=== PATIENT | male | born 1990 | race Caucasian/White ===

== ENCOUNTER 2020-07-04 18:33 | Inpatient (IN) | payer OTHER ==
[~2020-07-04] VITALS: Ht 190.5 cm; Wt 109.0 kg
[2020-07-04] MEDS ORDERED: SODIUM CHLORIDE 0.9% 1,000 ML IV ONE (20:00)
[2020-07-04] MEDS ORDERED: CloNIDine HCL 0.2 MG TABLET PO ONE (20:00)
[2020-07-04 20:26] LABS: COVID AG,FIA SOURCE NASOPHARYNGEAL
[2020-07-04 20:31] LABS: BASOPHILS % (AUTO) 0.3 % (0.0-2.0); EOSINOPHILS % (AUTO) 1.2 % (1.0-6.0); HEMATOCRIT 42.1 % (41-53); HEMOGLOBIN 14.8 g/dL (13.5-17.5); LYMPHOCYTES % (AUTO) 25.2 % (22.0-44.0); MEAN CORPUSCULAR HEMOGLOBIN 29.1 pg (26.0-34.0); MEAN CORPUSCULAR HGB CONC 35.3 G/dL (31.0-37.0); MEAN CORPUSCULAR VOLUME 83 fL (80-100); MONOCYTES # (AUTO) 0.4 K/uL (0.1-1.0); MONOCYTES % (AUTO) 4.8 % (2.0-9.0); NEUTROPHILS # (AUTO) 5.5 K/uL (1.8-7.7); NEUTROPHILS % (AUTO) 68.5 % (40.0-70.0); PLATELET COUNT (AUTO) 255 K/uL (150-450); RED BLOOD CELL COUNT(AUTO) 5.11 MIL/uL (4.50-5.90); RED CELL DISTRIBUTION WIDTH 12.9 % (11.5-14.5)
[2020-07-04 20:47] LABS: ANION GAP 10 mmol/L (8-16); CALCIUM, TOTAL 9.1 mg/dL (8.8-10.5); CARBON DIOXIDE 26 mmol/L (22-29); CHLORIDE 102 mmol/L (98-107); CREATININE 0.64 mg/dL (0.60-1.30); GLOMERULAR FILTR. RATE CALC > 60 mL/min (>60); GLUCOSE,RANDOM 103 mg/dL (70-110); POTASSIUM 3.8 mmol/L (3.5-5.1); SODIUM SERUM 138 mmol/L (136-145); UREA NITROGEN, BLOOD 12 mg/dL (7-18)
[2020-07-04 20:59] LABS: ALANINE AMINOTRANSFERASE 37 U/L (12-78); ALKALINE PHOSPHATASE 75 U/L (46-116); ASPARTATE AMINOTRANSFERASE 15 U/L (15-37); BILIRUBIN,TOTAL 0.5 mg/dL (0.1-1.0); TOTAL PROTEIN, SERUM 7.5 g/dL (6.4-8.2)
[2020-07-04] MEDS ORDERED: ONDANSETRON HCL 4 MG/2 ML VIAL IVP PRN (21:00)
[2020-07-04] MEDS ORDERED: CloNIDine HCL 0.1 MG TABLET PO PRN (21:00)
[2020-07-04] MEDS ORDERED: ACETAMINOPHEN 325 MG TABLET PO PRN (21:00)
[2020-07-04] MEDS ORDERED: LORazepam 2 MG TABLET PO PRN (21:30)
[2020-07-04 22:00] VITALS: BP 139/75
[2020-07-04] MEDS ORDERED: INFLUENZA VIRUS VACCINE QVS 2020-21 (6MO+)/PF 60 MCG/0.5 ML SYRINGE IM ONE (22:30)
[2020-07-04] MEDS ORDERED: PNEUMOCOCCAL VACCINE POLYVALENT 0.5 ML VIAL [PPSV23] IM ONE (22:30)
[2020-07-04 22:37] VITALS: BP 139/75
[2020-07-04 23:40] VITALS: BP 100/66
[2020-07-05] VITALS (8 sets, daily range): BP systolic 102–156; BP diastolic 43–91
[2020-07-05] MEDS ORDERED: LORazepam 2 MG TABLET PO PRN (07:00)
[2020-07-05] MEDS ORDERED: ENOXAPARIN SODIUM 40 MG/0.4 ML PF SYRINGE SQ SCH (09:00)
[2020-07-05] MEDS ORDERED: LORazepam 2 MG TABLET PO SCH (09:00)
[2020-07-06 04:45] VITALS: BP 145/94
[2020-07-06 08:53] VITALS: BP 136/75
[2020-07-06 20:43] VITALS: BP 148/77
[2020-07-06 23:30] VITALS: BP 143/92
[2020-07-07 04:55] VITALS: BP 144/90
[2020-07-07] MEDS ORDERED: LORazepam 1 MG TABLET PO PRN (07:00)
[2020-07-07 08:32] VITALS: BP 150/92
[2020-07-07] MEDS ORDERED: LORazepam 1 MG TABLET PO SCH (09:00)
[2020-07-07 12:05] VITALS: BP 142/72
[2020-07-07 16:25] VITALS: BP 123/56
[2020-07-08] MEDS ORDERED: LORazepam 1 MG TABLET PO PRN (07:00)
== END 2020-07-07 20:25 | DRG 897 ==
LOC: EMS 18:38 → 6S 21:30
PROVIDERS: ADMIT Internal Medicine; ATTEND Internal Medicine
DX: F11.13 Opioid abuse with withdrawal (principal); F15.10 Other stimulant abuse, uncomplicated; I10 Essential (primary) hypertension; F17.210 Nicotine dependence, cigarettes, uncomplicated; Z20.822 Contact with and (suspected) exposure to COVID-19
CPT/HCPCS: 87426; 99285; J1650; J7030